=== PATIENT | female | born 1990 | race African-American/Black ===

== ENCOUNTER 2023-12-22 00:26 | Emergency (ER) | payer OTHER ==
[2023-12-22] VITALS (7 sets, daily range): BP systolic 100–114; BP diastolic 53–74; PULSE 69–73; RESP 16–20; TEMP 97.9; O2SAT 98–100
[~2023-12-22] VITALS: Ht 157.5 cm; Wt 63.5 kg
[2023-12-22 00:42] LABS: HEMATOCRIT(ML) 38.1 % (36.0-46.0); HEMOGLOBIN 12.8 g/dL (12.0-15.0); MEAN CORP HGB 29.2 pg (26-34); MEAN CORP HGB CONCENTRATION 33.6 g/dL (33-36.5); MEAN CORP VOLUME 86.8 fL (78-100); RED BLOOD CELL 4.39 10^6/uL (4.00-5.20); RED CELL DISTRIBUTION WIDTH 11.8 % (11.5-14.5); WHITE BLOOD CELL 5.2 10^3/uL (4.5-11.0)
[2023-12-22 01:03] LABS: ALBUMIN(ML) 3.4 g/dL (3.4-5.0); ALBUMIN/GLOBULIN RATIO 1.172; ANION GAP 11.5; BUN/CREATININE RATIO 21.27 (10.0-20.0); CALCIUM 7.7 mg/dL (8.4-10.5); CARBON DIOXIDE 24.9 mmol/L (20.0-32); CREATININE SERUM 0.94 mg/dL (0.59-1.40); EST GFR, NON-AA 68.2 (>/=60); POTASSIUM 3.4 mmol/L (3.6-5.2)
[2023-12-22] MEDS ORDERED: ZOFRAN ONE (01:11)
[2023-12-22] MEDS ORDERED: MORPHINE SULFATE ONE (01:11)
[2023-12-22 01:14] LABS: BILIRUBIN,URINE NEGATIVE (NEGATIVE); LEUKOCYTE ESTERASE ,URINE NEGATIVE (NEGATIVE); NITRATE,URINE NEGATIVE (NEGATIVE); PH,URINE 6.5 (4.5-8.0)
[2023-12-22 01:16] LABS: APPEARANCE,URINE CLEAR; UA COLOR YELLOW
[2023-12-22] MEDS: MORPHINE SULFATE IV STA (01:18)
[2023-12-22] MEDS: ZOFRAN IV PRN (01:19)
[2023-12-22] MEDS ORDERED: LIDOCAINE HCL VISCOUS ONE (02:14)
[2023-12-22] MEDS ORDERED: DILAUDID ONE (02:27)
[2023-12-22] MEDS ORDERED: TORADOL ONE (03:35)
[2023-12-22] MEDS: TORADOL IV STA (03:36)
== END 2023-12-22 03:50 | disposition home or self-care (01) ==
LOC: EDBD 00:26 → ER 00:26
DX: S20.212A Contusion of left front wall of thorax, initial encounter (principal); Z98.890 Other specified postprocedural states; V89.2XXA Person injured in unspecified motor-vehicle accident, traffic, initial encounter; Y93.89 Activity, other specified; Y92.89 Other specified places as the place of occurrence of the external cause; Y99.8 Other external cause status
CPT/HCPCS: 99285; 70450; 96374; 96375; 87086; 72125; 72128; 74176; 80053; 85027; 36415; 81001; 81025; J2270; J3490; J2405; J1885; J1170